=== PATIENT | male | born 1945 | race Caucasian/White ===

== ENCOUNTER 2019-03-06 17:47 | Inpatient (IN) | payer OTHER, BC ==
[2019-03-06 18:26] VITALS: TEMP 98.3; BMI 56.9
--- NOTE | 2019-03-06 18:46 | PDOC ---
History of Present Illness - General Chief Complaint: Lightheaded Stated Complaint: DIZZINESS Time Seen by Provider: 03/06/19 18:40 History Source: Patient Exam Limitations: No Limitations - History of Present Illness Initial Comments: 03/06/19 18:41 Yany Su is a 73M with PMH BPH on Flomax here for dizziness and ataxia 3 hours [employer]. Patient was standing at home packing for a trip 3 hours [employer] when he suddenly began feeling room-spinning dizziness. Sat onto sofa, still felt a bit dizzy, tried to lie down in bed and felt a bit better, but was concerned and came to ED. Denies chest pain, SOB, abd pain, fever, MARIE, changes to vision, tinnitis, cough, no nausea/vomiting. Has had difficulty walking for ~1 day, says he sometimes feels room-spinning but mostly feels unsteady in his legs, walks with wide stance, needs assistance to keep standing. Normally has no difficulty walking, goes to the gym for ~2hr daily, has no difficulty swimming. Eating well , drinks a lot of fluids after gym each day. In 2018 had one episode of LOC and fall accompanied by bowel incontinence. Evaluated by Cardiology Harinder and Neurology Kacie, no abnormalities noted, has had CT and MRI brain done already. Denies PMH cardiac or neurological issues, no traumatic events to spine. Denies alcohol/tobacco/drug use. No drug allergies. Only medication is tamsulosin. Past History - Past Medical History Allergies/Adverse Reactions: Allergies Allergy/AdvReac Type Severity Reaction Status Date / Time No Known Allergies Allergy Verified 06/02/12 15:51 Home Medications: Ambulatory Orders Methocarbamol [Robaxin -] 500 mg PO BID #14 tablet 03/06/19 COPD: No Disorders: Yes (Enlarged prostate) - Immunization History Immunization Up to Date: No - Psycho Social/Smoking Cessation Hx Smoking Status: No Smoking History: Never smoked Have you smoked in the past 12 months: No Number of Cigarettes Smoked Daily: 0 Information on smoking cessation initiated: No Hx Alcohol Use: No Drug/Substance Use Hx: No Review of Systems - Review of Systems Able to Perform ROS?: Yes Constitutional: No: Symptoms Reported HEENTM: No: Blurred Vision, Nose Pain, Tinnitus, Throat Pain Respiratory: No: Cough, Shortness of Breath Cardiac (ROS): No: Chest Pain, Irregular Heart Rate, Lightheadedness, Palpitations, Syncope ABD/GI: No: Symptoms Reported : No: Symptoms Reported Musculoskeletal: Yes: Muscle Weakness, Joint Stiffness Integumentary: No: Symptoms Reported Neurological: Yes: Weakness, Unsteady Gait, Dizziness. No: Headache, Numbness, Paresthesia, Tremors Endocrine: No: Symptoms Reported Hematologic/Lymphatic: No: Symptoms Reported All Other Systems: Reviewed and Negative *Physical Exam - Vital Signs Last Vital Signs Temp Pulse Resp BP Pulse Ox 98.3 F 59 L 16 117/49 L 96 03/06/19 18:17 03/06/19 18:17 03/06/19 18:17 03/06/19 18:17 03/06/19 18:17 - Physical Exam Comments: 03/06/19 20:32 Neurological Exam: A/Ox4, speaking normally with no aphasia Cranial Nerves 2-12 grossly intact. TM clear bilaterally EOMI, PERRL, no nystagmus No sensory deficits to light touch Motor strength 5/5 all groups Romberg negative Finger/nose and heel/benitez normal No dysdiadachokinesia Able to stand from sitting without difficulty Walks with wide-based gait, unable to perform tandem walk General Appearance: Yes: Nourished, Appropriately Dressed. No: Apparent Distress HEENT: positive: EOMI, LULA, Normal ENT Inspection, Normal Voice, Symmetrical, TMs Normal, Pharynx Normal, Muffled/Hoarse voice, Hearing Grossly Normal. negative: Scleral Icterus (R), Scleral Icterus (L), Sinus Tenderness Neck: positive: Trachea midline, Normal Thyroid, Supple. negative: Tender, Decreased range of motion, Lymphadenopathy (R), Lymphadenopathy (L) Respiratory/Chest: positive: Lungs Clear, Normal Breath Sounds. negative: Chest Tender, Respiratory Distress, Accessory Muscle Use, Crackles, Rales, Rhonchi, Wheezing Cardiovascular: positive: Regular Rhythm, Bradycardia. negative: Murmur Gastrointestinal/Abdominal: positive: Normal Bowel Sounds, Flat, Soft. negative : Tender, Organomegaly, Hernia Musculoskeletal: positive: Normal Inspection. negative: CVA Tenderness Extremity: positive: Normal Capillary Refill, Normal Inspection, Normal Range of Motion, Pelvis Stable. negative: Tender Integumentary: positive: Normal Color, Dry, Warm Neurologic: positive: aircraft structure mechanic II-XII NML intact, Fully Oriented, Alert, Normal Mood/ Affect, Normal Response, Motor Strength 09/08 ED Treatment Course - LABORATORY CBC & Chemistry Diagram: 03/06/19 18:30 03/06/19 18:30 Medical Decision Making - Medical Decision Making 03/06/19 18:41 Yany Su is a 73M with PMH BPH on Flomax here for dizziness and ataxia 3 hours [employer]. Presentation is concerning for posterior CVA vs. cerebellar disease vs. NPH vs. vitamin deficiency vs. neuromuscular dx such as Parkinsons. Dizziness could be cardiac i.e. arrhythmia vs. vagal vs. PE.vs. carotid/aortic stenosis or neuro i.e. BPPV vs. ocular disturbance vs. MS. Will evaluate broadly via: CMP CBC CP ECG CXR UA/UC CT head for r/o CVA or cerebellar disease. Will contact Dr. Hester. 03/06/19 20:28 ECG shows sinus bradycardia with RBBB in V2-V3, HR 54, QRS 150, QTc 428, no evidence of ischemic changes. Orthostatics supine - 143/60 sitting up - 139/63 standing - 132/63 No orthostatic hypotension noted 03/06/19 20:[address] Hester, recommends 25mg meclizine and re-assess in one hour, if improvement can f/u in office in one week. If being admitted, get AM MRI with neuro/ENT consult. Patient at CT scan now. 03/06/19 21:57 CT scan grossly normal. Will admit for ataxia and AM MRI. 03/06/19 22:26 Patient refuses meclizine and IVF, says he feels better. Spoke to Dr. Sparrow regarding admission to Med-Surg under Dr. Raya However, patient's gait has improved tremendously and is able to toe walk and tandem gait without issue. Per Hospitalist Dr. Raya, patient can be discharged home safely if he no longer has ataxia. Discussed this with patient, who would like to go home and will get MRI outpatient, follow-up with Dr. Hester. Discharge - Discharge Information Problems reviewed: Yes Clinical Impression/Diagnosis: Ataxia Condition: Stable - Additional Discharge Information - Follow up/Referral - Patient Discharge Instructions - Post Discharge Activity
[2019-03-06 19:20] LABS: BASO % 0.7 % (0-2.0); HEMOGLOBIN 14.7 GM/dL (11.7-16.9); LYMPH % 32.7 % (8-40); MCH 30.3 pg (25.7-33.7); MCHC 34.2 g/dl (32.0-35.9); MEAN CELL VOLUME 88.8 fl (80-96); MEAN PLT VOLUME 7.8 fl (7.5-11.1); MONO % 10.4 % (3.8-10.2); NEUT % 53.2 % (42.8-82.8); PLATELET COUNT 241 K/MM3 (134-434); RBC 4.84 M/mm3 (4.00-5.60); RDW 14.2 % (11.9-15.9); WHITE BLOOD COUNT 6.7 K/mm3 (4.0-10.0)
--- NOTE | 2019-03-06 19:22 | PDOC ---
Attending Attestation - Resident Resident Name: GabinoRicco - ED Attending Attestation I have performed the following: I have examined & evaluated the patient, The case was reviewed & discussed with the resident, I agree w/resident's findings & plan, Exceptions are as noted - HPI HPI: 03/06/19 20:03 Mr. Su is a pam 73 yo M who presents to the ER due to unsteady gait The patient is in very good health, works out every day Pt present to the ER stating that at approximately 3:30pm he began to notice that the ceiling was moving When he stood, he noted that his walking felt unsteady When he laid down, he felt that the ceiling was moving This was not exacerbated by movement of his head He denies headache, tinnitus He denies Head trauma Pt has intermittently had these symptoms but they were transient He denies weakness in the arms or legs He denies changes in his speech - Physicial Exam PE: 03/06/19 19:22 GENERAL: The patient is in no acute distress. ENT: Ears normal, nares patent, oropharynx clear without exudates. Moist mucous membranes. NECK: Normal range of motion, supple LUNGS: Breath sounds equal, clear to auscultation bilaterally. No wheezes, and no crackles. HEART:Regular rate and rhythm, normal S1 and S2 without murmur, rub or gallop. ABDOMEN: Soft, nontender, normoactive bowel sounds. EXTREMITIES: Normal range of motion, no edema. NEUROLOGICAL: No nystagmus Cranial nerves II through XII grossly intact. Face symmetric Normal speech. no weakness No dysmetria No dysdiadokinesis Widebased, unsteady gait SKIN: Warm, Dry, normal turgor, no rashes or lesions noted. 03/06/19 20:09 - Medical Decision Making 03/06/19 20:13 73 yo M presenting with a complaint of unsteady gait Symptoms began this afternoon NOT associated with headache or weakness The patient has had transient episodes of dizziness but typically they are transient DD: BPPV, Posterior circulation TIA? ischemia, cerebellar mass Will do: Labs CT Consult to pt neurologist - Dr hester Admission 03/06/19 22:[address] Hester He states that this patient can be discharged if improved Would recommend giving meclizine Laboratory Tests 03/06/19 03/06/19 03/06/19 18:30 18:30 18:30 WBC 6.7 Hgb 14.7 Hct 43.0 Plt Count 241 BUN 18.7 H Creatinine 1.2 Alkaline Phosphatase 42 L Creatine Kinase 141 Troponin I < 0.02 Patient refuses meclizine (he does not like taking medication) Pt admitted to hospitalist service 03/06/19 22:24 I received a call from Dr. Raya He states that based on the resident's examination this patient can be discharged home for outpatient MRI 03/06/19 22:26 Patient walk He is able to do so without ataxia Will discharge home Follow-up with Dr. Hester I discussed the physical exam findings, ancillary test results and final diagnoses with the patient. I answered all of the patient's questions. The patient was satisfied with the care received and felt comfortable with the discharge plan and treatment plan. The patient will call their primary care physician within 24 hours to arrange follow-up and will return to the Emergency Department with any new, persistant or worsening symptoms. The patient understands that we could not exclude the possibility of an ectopic based on her emergency department workup. She understands that it is extremely important that she sees her physician within 24-48 hours for a repeat visit, including repeat blood work. Discharge - Discharge Information Problems reviewed: Yes Clinical Impression/Diagnosis: Ataxia Condition: Stable - Admission No - Additional Discharge Information - Follow up/Referral - Patient Discharge Instructions - Post Discharge Activity
[2019-03-06 19:39] LABS: INR 0.97 (0.83-1.09); PROTHROMBIN TIME (PATIENT) 11.4 SEC (9.7-13.0)
[2019-03-06 19:49] LABS: ALBUMIN 3.5 g/dl (3.4-5.0); BILIRUBIN,TOTAL 0.5 mg/dL (0.2-1); BLOOD UREA NITROGEN 18.7 mg/dL (7-18); CALCIUM 8.6 mg/dL (8.5-10.1); CREATININE 1.2 mg/dL (0.55-1.3); TOT PROT 6.8 g/dl (6.4-8.2)
[2019-03-06] MEDS ORDERED: SODIUM CHLORIDE 0.9% 500 ML INFUS.BAG IV ONE (20:04)
[2019-03-06] MEDS ORDERED: MECLIZINE HCL 25 MG TABLET (FP) PO ONE (20:47)
[2019-03-06] MEDS ORDERED: MECLIZINE HCL 25 MG TABLET (FP) ONE (21:19)
[2019-03-06 22:25] VITALS: BP 130/61; PULSE 62
--- NOTE | 2019-03-07 14:34 | EKG ---
Test Reason : Blood Pressure : / mmHG Vent. Rate : 054 BPM Atrial Rate : 054 BPM P-R Int : 146 ms QRS Dur : 150 ms QT Int : 452 ms P-R-T Axes : 071 035 046 degrees QTc Int : 428 ms SINUS BRADYCARDIA RIGHT BUNDLE BRANCH BLOCK ABNORMAL ECG NO PREVIOUS ECGS AVAILABLE Confirmed by MJ BROOKS MD ([id number]) on 03/07/2019 2:33:47 PM Referred By: Confirmed By:MJ BROOKS MD
== END 2019-03-06 23:05 | disposition home or self-care (01) | DRG 93 ==
LOC: JER 17:47 → JERBED 21:26
PROVIDERS: ADMIT Internal Medicine; ATTEND Internal Medicine
DX: R26.0 Ataxic gait (principal); H81.10 Benign paroxysmal vertigo, unspecified ear; I45.10 Unspecified right bundle-branch block; R26.81 Unsteadiness on feet; N40.0 Benign prostatic hyperplasia without lower urinary tract symptoms
CPT/HCPCS: 36415; 70450-TC; 71045-TC-FY; 80053; 82550; 84443; 84484; 85025; 85610; 93005; 93010; 99284-25